=== PATIENT | female | born 2000 | race Caucasian/White ===

== ENCOUNTER 2020-04-07 05:12 | Observation (INO) | payer OTHER ==
[2020-04-07] MEDS ORDERED: Zofran 4 MG/2 ML VIAL IV ONE (05:42)
[2020-04-07] MEDS ORDERED: Phenergan 25 MG INJ IM ONE (05:42)
[2020-04-07] MEDS ORDERED: PROTONIX 40 MG IV IV ONE ×2 (05:42→05:57)
[2020-04-07] MEDS ORDERED: Sodium Chloride 0.9% 1000 ML 1,000 ML IV STA (05:42)
[2020-04-07] MEDS ORDERED: Zofran 4 MG/2 ML VIAL ONE ×2 (05:45→09:50)
[2020-04-07] MEDS ORDERED: Phenergan 25 MG INJ ONE (05:45)
[2020-04-07] MEDS ORDERED: Sodium Chloride 0.9% 1000 ML 1,000 ML ONE (05:45)
[2020-04-07] MEDS ORDERED: MORPHINE SULFATE 4 MG INJ ONE (05:58)
[2020-04-07] MEDS ORDERED: MORPHINE SULFATE 4 MG INJ IV ONE (06:07)
[2020-04-07 06:09] LABS: Absolute Neutrophil Ct (ANC) 13.09 (1.4-6.9); BASOPHIL % 0.2 % (0.0-0.4); Basophil (Absolute #) 0.03 (0-0.4); Eosinophil % 0.8 % (0.00-5.0); Eosinophil (Absolute #) 0.14 (0-0.5); Hematocrit 35.9 % (35-47); Hemoglobin 11.6 gm/dl (12.0-16.0); Lymphocyte (Absolute #) 3.01 (1.0-4.6); Lymphocytes % 17.3 % (24.0-44.0); Mean Cell Volume 76.4 fl (78-100); Mean Corpuscular Hemoglobin 24.7 pg (26-32); Mean Corpuscular Hgb Concent. 32.3 g/dl (32-36); Mean Platelet Volume 10.2 fl (7.5-11.0); Monocyte (Absolute #) 1.16 (0.0-1.3); Monocytes % 6.7 % (0.0-12.0); Platelet Count 442 K/mm3 (150-450); Red Cell Distribution Width 14.1 % (11.5-14.0); White Blood Count 17.4 K/mm3 (4.0-10.5)
--- NOTE | 2020-04-07 06:14 | ERPHSYRPT ---
- History of Present Illness Time Seen by Provider: 04/07/20 06:06 Historian: patient, family Exam Limitations: no limitations Patient Subjective Stated Complaint: pt c/o vomiting since midnight and a couple episodes of diarrhea Triage Nursing Assessment: pt c/o vomiting nonstop since midnight and a couple episodes of diarrhea. Pt states, "My brother was Covid positive on Feb 26". Physician History: 19yo patient female with NVD since last night. sick contact with brother who was covid + 02/26. No fever. Severe abd pain. No CP or SOB. No medical hx. Timing/Duration: yesterday Activities at Onset: none Quality: cramping, stabbing Abdominal Pain Onset Location: generalized abdomen Pain Radiation: no radiation Severity of Pain-Max: moderate Severity of Pain-Current: severe Modifying Factors: Improves With: nothing Associated Symptoms: diarrhea, vomiting, weakness Previous symptoms: no prior history Allergies/Adverse Reactions: No Known Drug Allergies Allergy (Unverified 04/07/20 05:39) Home Medications: Escitalopram Oxalate [Lexapro] 20 mg PO HS 04/07/20 [History] Trazodone HCl 50 mg [Desyrel 50 mg] 50 mg PO HS 04/07/20 [History] Hx Tetanus, Diphtheria Vaccination/Date Given: Yes Hx Influenza Vaccination/Date Given: No Hx Pneumococcal Vaccination/Date Given: No Immunizations Up to Date: Yes Travel Risk - International Travel Have you traveled outside of the country in past 3 weeks: No - Coronavirus Screening Symptoms: Vomiting/Diarrhea, Headaches/Body Aches/Fatigue Close contact with a COVID-19 positive Pt in past 14-21 Days: No - Review of Systems Constitutional: Malaise, Weakness, No Fever, No Chills Eyes: No Symptoms Ears, Nose, & Throat: No Symptoms Respiratory: No Cough, No Dyspnea Cardiac: No Chest Pain, No Edema, No Syncope Abdominal/Gastrointestinal: Abdominal Pain, Nausea, Vomiting, Diarrhea Genitourinary Symptoms: No Dysuria Musculoskeletal: No Back Pain, No Neck Pain Skin: No Rash Neurological: No Dizziness, No Focal Weakness, No Sensory Changes Psychological: No Symptoms Endocrine: No Symptoms All Other Systems: Reviewed and Negative - Past Medical History Pertinent Past Medical History: Yes Neurological History: No Pertinent History ENT History: No Pertinent History Cardiac History: No Pertinent History Respiratory History: No Pertinent History Endocrine Medical History: No Pertinent History Musculoskeletal History: No Pertinent History GI Medical History: Other History: No Pertinent History Psycho-Social History: Anxiety, Depression Female Reproductive Disorders: No Pertinent History Other Medical History: viral infection of bowels - Past Surgical History Past Surgical History: No - Social History Smoking Status: Current every day smoker How long have you smoked: 1 yr Exposure to second hand smoke: Yes Drug Use: marijuana Patient Lives Alone: No - Female History Hx Last Menstrual Period: unknown Hx Now: No - Nursing Vital Signs Nursing Vital Signs: Initial Vital Signs Temperature 98.0 F 04/07/20 05:18 Pulse Rate 63 04/07/20 05:18 Respiratory Rate 16 04/07/20 05:18 Blood Pressure 136/90 04/07/20 05:18 O2 Sat by Pulse Oximetry 100 04/07/20 05:18 Pain Scale Pain Intensity 3 - Physical Exam General Appearance: moderate distress, alert, anxiety Eye Exam: PERRL/EOMI, eyes nml inspection Ears, Nose, Throat Exam: normal ENT inspection, pharynx normal, moist mucous membranes Neck Exam: normal inspection, non-tender, supple, full range of motion Respiratory Exam: normal breath sounds, lungs clear, No respiratory distress Cardiovascular Exam: regular rate/rhythm, normal heart sounds Gastrointestinal/Abdomen Exam: soft, tenderness, mass Pelvic Exam: deferred Rectal Exam: deferred Back Exam: normal inspection, normal range of motion, No CVA tenderness, No vertebral tenderness Extremity Exam: normal inspection, normal range of motion, pelvis stable Neurologic Exam: alert, oriented x 3, cooperative, normal mood/affect, nml cerebellar function, sensation nml, No motor deficits Skin Exam: normal color, warm, dry SpO2 Interpretation: normal SpO2: 100 - Course Nursing assessment & vital signs reviewed: Yes - CT Exams Abdomen/Pelvis CT Interpretation: Discussed w/radiologist, appendicitis Ordered Tests: Active Orders 24 hr Category Date Time Status Bedrest with BRP/BSC TOLERATED Activity 04/07/20 07:57 Ordered Code Status Order ROUTINE Care 04/07/20 07:56 Ordered IV Insertion STAT Care 04/07/20 05:42 Active Intake and Output 09,13,18,21 Care 04/07/20 07:[address] in Observation ROUTINE Care 04/07/20 07:55 Ordered Telemetry PROTOCOL Care 04/07/20 07:57 Ordered Vital Signs Q4H Care 04/07/20 07:55 Ordered NPO Diet 04/07/20 07:57 Ordered ABDOMEN AND PELVIS W/0 CONTRAS [CT] Stat Exams 04/07/20 05:43 Taken AMYLASE Stat Lab 04/07/20 06:00 Completed CBC W DIFF Stat Lab 04/07/20 06:00 Completed CMP Stat Lab 04/07/20 06:00 Completed HCG QUALITATIVE,SERUM Stat Lab 04/07/20 06:10 Completed HCG,QUALITATIVE URINE Stat Lab 04/07/20 06:00 Ordered INFLUENZA A+B CHELA Stat Lab 04/07/20 06:05 Completed LIPASE Stat Lab 04/07/20 06:00 Completed Lactic Acid Stat Lab 04/07/20 06:00 Completed [place] Screen Stat Lab 04/07/20 06:00 Completed PROTIME WITH INR Stat Lab 04/07/20 07:55 Ordered PTT Stat Lab 04/07/20 07:55 Ordered UA W/RFX UR CULTURE Stat Lab 04/07/20 05:43 Ordered EKG STAT RT 04/07/20 07:55 Ordered Pulse Oximetry ROUTINE RT 04/07/20 07:58 Ordered Medication Summary Generic Name Dose Route Start Last Admin Trade Name Freq PRN Reason Stop Dose Admin Piperacillin Sod/Tazobactam 100 mls @ 200 mls/hr 04/07/20 07:37 04/07/20 07:54 Sod 3.375 gm/ Sodium Chloride IV 04/07/20 08:06 200 mls/hr STAT ONE Administration Sodium Chloride 1,000 mls @ 100 mls/hr 04/07/20 08:00 Sodium Chloride 0.9% 1000 Ml IV 05/07/20 07:59 .Q10H DAJUAN Morphine Sulfate 4 mg 04/07/20 07:59 Morphine Sulfate 4 Mg Inj IV 04/12/20 07:58 Q4H PRN PRN PAIN Ondansetron HCl 2 mg 04/07/20 07:59 Zofran 4 Mg/2 Ml Vial IV 05/07/20 07:58 Q6H PRN PRN NAUSEA/VOMITING Discontinued Medications Generic Name Dose Route Start Last Admin Trade Name Freq PRN Reason Stop Dose Admin Sodium Chloride Confirm 04/07/20 05:45 Sodium Chloride 0.9% 1000 Ml Administered 04/07/20 05:46 Dose 1,000 mls @ ud .ROUTE .STK-MED ONE Sodium Chloride 1,000 mls @ 999 mls/hr 04/07/20 05:42 04/07/20 07:30 Sodium Chloride 0.9% 1000 Ml IV 04/07/20 06:42 Infused .Q1H1M STA Infusion Sodium Chloride Confirm 04/07/20 07:43 Sodium Chloride 0.9% 100 Ml Ivpb Administered 04/07/20 07:44 Dose 100 mls @ ud IV .STK-MED ONE Morphine Sulfate Confirm 04/07/20 05:58 Morphine Sulfate 4 Mg Inj Administered 04/07/20 05:59 Dose 4 mg .ROUTE .STK-MED ONE Morphine Sulfate 4 mg 04/07/20 06:07 04/07/20 06:09 Morphine Sulfate 4 Mg Inj IV 04/07/20 06:08 4 mg STAT ONE Administration Ondansetron HCl Confirm 04/07/20 05:45 Zofran 4 Mg/2 Ml Vial Administered 04/07/20 05:46 Dose 4 mg .ROUTE .STK-MED ONE Ondansetron HCl 4 mg 04/07/20 05:42 04/07/20 05:49 Zofran 4 Mg/2 Ml Vial IV 04/07/20 05:43 4 mg STAT ONE Administration Pantoprazole Sodium 40 mg 04/07/20 05:42 04/07/20 06:01 Protonix 40 Mg Iv IV 04/07/20 05:43 40 mg STAT ONE Administration Pantoprazole Sodium Confirm 04/07/20 05:57 Protonix 40 Mg Iv Administered 04/07/20 05:58 Dose 40 mg IV .STK-MED ONE Piperacillin Sod/Tazobactam Sod Confirm 04/07/20 07:43 Zosyn 3.375 Gm Vial Administered 04/07/20 07:44 Dose 3.375 gm IV .STK-MED ONE Promethazine HCl Confirm 04/07/20 05:45 Phenergan 25 Mg Inj Administered 04/07/20 05:46 Dose 25 mg .ROUTE .STK-MED ONE Promethazine HCl 12.5 mg 04/07/20 05:42 04/07/20 05:50 Phenergan 25 Mg Inj IM 01/22/21 05:43 12.5 mg STAT ONE Administration Lab/Rad Data: Laboratory Result Diagrams 04/07/20 06:00 04/07/20 06:00 Laboratory Results 04/07/20 04/07/20 04/07/20 Range/Units 06:10 06:05 06:00 WBC (4.0-10.5) K/mm3 RBC (4.1-5.4) M/mm3 Hgb (12.0-16.0) gm/dl Hct (35-47) % MCV (78-100) fl MCH (26-32) pg MCHC (32-36) g/dl RDW (11.5-14.0) % Plt Count (150-450) K/mm3 MPV (7.5-11.0) fl Gran % (36.0-66.0) % Eos # (Auto) (0-0.5) Absolute Lymphs (auto) (1.0-4.6) Absolute Monos (auto) (0.0-1.3) Lymphocytes % (24.0-44.0) % Monocytes % (0.0-12.0) % Eosinophils % (0.00-5.0) % Basophils % (0.0-0.4) % Absolute Granulocytes (1.4-6.9) Basophils # (0-0.4) Sodium (137-145) mmol/L Potassium (3.5-5.1) mmol/L Chloride (98-107) mmol/L Carbon Dioxide (22-30) mmol/L Anion Gap (5-15) MEQ/L BUN (7-17) mg/dL Creatinine (0.52-1.04) mg/dL Estimated GFR ML/MIN Glucose (74-106) mg/dL Lactic Acid (0.4-2.0) Calcium (8.4-10.2) mg/dL Total Bilirubin (0.2-1.3) mg/dL AST (14-36) U/L ALT (0-35) U/L Alkaline Phosphatase (38-126) U/L Serum Total Protein (6.3-8.2) g/dL Albumin (3.5-5.0) g/dL Amylase (30-110) U/L Lipase (23-300) U/L Serum , Qual NEGATIVE (Negative) Monoscreen NEGATIVE (Negative) Influenza Type A Ag NEGATIVE (NEGATIVE) Influenza Type B Ag NEGATIVE (NEGATIVE) 04/07/20 04/07/20 04/07/20 Range/Units 06:00 06:00 06:00 WBC 17.4 H (4.0-10.5) K/mm3 RBC 4.70 (4.1-5.4) M/mm3 Hgb 11.6 L (12.0-16.0) gm/dl Hct 35.9 (35-47) % MCV 76.4 L (78-100) fl MCH 24.7 L (26-32) pg MCHC 32.3 (32-36) g/dl RDW 14.1 H (11.5-14.0) % Plt Count 442 (150-450) K/mm3 MPV 10.2 (7.5-11.0) fl Gran % 75.0 H (36.0-66.0) % Eos # (Auto) 0.14 (0-0.5) Absolute Lymphs (auto) 3.01 (1.0-4.6) Absolute Monos (auto) 1.16 (0.0-1.3) Lymphocytes % 17.3 L (24.0-44.0) % Monocytes % 6.7 (0.0-12.0) % Eosinophils % 0.8 (0.00-5.0) % Basophils % 0.2 (0.0-0.4) % Absolute Granulocytes 13.09 H (1.4-6.9) Basophils # 0.03 (0-0.4) Sodium 137 (137-145) mmol/L Potassium 3.4 L (3.5-5.1) mmol/L Chloride 103 (98-107) mmol/L Carbon Dioxide 23 (22-30) mmol/L Anion Gap 14.6 (5-15) MEQ/L BUN 13 (7-17) mg/dL Creatinine 0.59 (0.52-1.04) mg/dL Estimated GFR > 60.0 ML/MIN Glucose 114 H (74-106) mg/dL Lactic Acid 2.9 H (0.4-2.0) Calcium 10.9 H (8.4-10.2) mg/dL Total Bilirubin 0.50 (0.2-1.3) mg/dL AST 21 (14-36) U/L ALT 12 (0-35) U/L Alkaline Phosphatase 107 (38-126) U/L Serum Total Protein 8.1 (6.3-8.2) g/dL Albumin 4.6 (3.5-5.0) g/dL Amylase 69 (30-110) U/L Lipase 61 (23-300) U/L Serum , Qual (Negative) Monoscreen (Negative) Influenza Type A Ag (NEGATIVE) Influenza Type B Ag (NEGATIVE) - Progress Progress: improved Progress Note: 04/07/20 06:16 Care transferred rohan from Dr. Baca at shift change 0600. 04/07/20 07:43 CT scan shows acute appendicitis. This along with her symptoms and leukocytosis of 17 was probable acute abdomen. Discussed with general surgery. Will take her to the OR in the afternoon. Discussed with : Richie Will see patient in: hospital (observation) Counseled pt/family regarding: lab results, diagnosis, rad results - Departure Departure Disposition: Observation Clinical Impression: Acute appendicitis Condition: Stable Critical Care Time: No Referrals: WAYNE YOUNG [Primary Care Provider] -
[2020-04-07 06:23] LABS: ALBUMIN 4.6 g/dL (3.5-5.0); ALKALINE PHOSPHATASE 107 U/L (38-126); AMYLASE 69 U/L (30-110); ANION GAP 14.6 MEQ/L (5-15); BLOOD UREA NITROGEN 13 mg/dL (7-17); CHLORIDE 103 mmol/L (98-107); Calcium 10.9 mg/dL (8.4-10.2); Carbon Dioxide 23 mmol/L (22-30); Creatinine 1 0.59 mg/dL (0.52-1.04); EST GLOMERULAR FILTRATION RATE > 60.0 ML/MIN; Glucose 114 mg/dL (74-106); LIPASE 61 U/L (23-300); Potassium 3.4 mmol/L (3.5-5.1); SGOT/AST 21 U/L (14-36); SGPT/ALT 12 U/L (0-35); SODIUM 137 mmol/L (137-145); Total Protein 8.1 g/dL (6.3-8.2)
[2020-04-07 06:25] LABS: INFLUENZA A NEGATIVE (NEGATIVE); INFLUENZA B NEGATIVE (NEGATIVE)
[2020-04-07] MEDS ORDERED: Zosyn 3.375 GM Vial 3.375 GM in Sodium Chloride 100ML MINI-BAG PLUS 100 ML IV ONE (07:37)
[2020-04-07] MEDS ORDERED: Sodium Chloride 0.9% 100 ML IVPB 100 ML IV ONE (07:43)
[2020-04-07] MEDS ORDERED: Zosyn 3.375 GM Vial IV ONE (07:43)
[2020-04-07] MEDS ORDERED: MORPHINE SULFATE 4 MG INJ IV PRN (07:59)
[2020-04-07] MEDS ORDERED: Zofran 4 MG/2 ML VIAL IV PRN (07:59)
[2020-04-07] MEDS ORDERED: Sodium Chloride 0.9% 1000 ML 1,000 ML IV SCH (08:00)
[2020-04-07 08:10] LABS: INR 1.22 (0.8-3.0); PROTIME 13.8 SECONDS (9.95-12.35)
[2020-04-07 08:13] LABS: PTT 23.5 SECONDS (25.3-37.0)
[2020-04-07] MEDS ORDERED: Sensorcaine 0.25% 10 ML ONE (08:29)
--- NOTE | 2020-04-07 08:57 | XRAY ---
Indication: Abdomen pain and vomiting. Multiple contiguous axial images obtained through the abdomen and pelvis without contrast as ordered. Comparison: None Lung bases are clear. Heart is not enlarged. Noncontrasted stomach and bowel loops appear nonobstructed. Retrocecal appendix is prominent up to 15 mm in diameter with minimal periappendiceal stranding favoring appendicitis. Concretions/appendicolith seen at base of appendix. Tiny cul-de-sac fluid either reactive to appendicitis versus ruptured/leaking cyst. No walled off fluid collection or free air. Remaining liver, gallbladder, pancreas, spleen, adrenal glands, kidneys, ureters, bladder, uterus, and aorta appear unremarkable for noncontrast exam. Osseous structures intact. Impression: CT features as detailed favoring acute appendicitis. Tiny cul-de-sac fluid.
[2020-04-07] MEDS ORDERED: Lactated Ringers 1,000 ML IV SCH (09:00)
[2020-04-07] MEDS ORDERED: MEFOXIN 2 GM PREMIX** 2 GM/50 ML ML IV SCH (09:00)
[2020-04-07] MEDS ORDERED: Versed 2 MG/2 ML Injection ONE (09:21)
[2020-04-07] MEDS ORDERED: DIPRIVAN 200 MG/20 ML IV ONE (09:21)
[2020-04-07] MEDS ORDERED: Zemuron 100 MG/10 ML ONE (09:21)
[2020-04-07] MEDS ORDERED: Quelicin Fliptop 200 MG/10 ML ONE (09:21)
[2020-04-07] MEDS ORDERED: SUBLIMAZE 250 MCG/5 ML ONE (09:22)
[2020-04-07] MEDS ORDERED: Decadron 4 MG INJ ONE (09:33)
[2020-04-07] MEDS ORDERED: TORAdol 30 mg Injection ONE (09:50)
--- NOTE | 2020-04-07 10:41 | HP ---
HISTORY OF PRESENT ILLNESS: A 19 year old had sudden onset of abdominal radiating to the right lower quadrant since last night and had some vomiting. She had COVID exposure back in February. PAST MEDICAL HISTORY: She denies any chronic illness although she has some anxiety. PAST SURGICAL HISTORY: She denied any prior surgery. MEDICATIONS: She had been on Lexapro and Desyrel. ALLERGIES: NKDA. FAMILY HISTORY: History of COVID in the family. She denied any chronic medical problems in the family. SOCIAL HISTORY: She is a smoker, does use some marijuana. She denies alcohol abuse. REVIEW OF SYSTEMS: Fourteen systems reviewed pertinent for as noted above. No chest pain or palpitations. Pertinent for abdominal cramping. LAB DATA AND TESTS: White count 17,400, hemoglobin 11.5, PLT count 442,000. test was negative. Liver function test unremarkable. INR 1.22. Alfalfa screen was negative. Abnormal CT abdomen obtained with 15 mm strand favoring acute appendicitis. PHYSICAL EXAMINATION: GENERAL: Slightly uncomfortable in no acute distress. HEENT: Sclerae nonicteric. Moist oral mucous membranes. NECK: No JVD. CHEST: Equal excursion, nonlabored breathing. CVS: Regular rhythm and pulse. ABDOMEN: Soft, tender down in the right lower quadrant. EXTREMITIES: No significant edema. NEURO: Alert, oriented, moving extremities symmetrically. PSYCH: Appropriate mood and affect. SKIN: Dry and intact. IMPRESSION: Acute lower abdominal pain. CT scan suspicious for acute appendicitis. Other differential could include ruptured ovarian, mesenteric adenitis, viral syndrome or other etiology. Given the CT findings and persistent symptoms, I feel she needs diagnostic laparoscopy, laparoscopic appendectomy possible open. General risk of bleeding or infection, risk of trocar injury or hernia, risk of bowel, bladder or blood vessel injury, risk of subsequent intra-abdominal abscess or fistula formation possibly requiring percutaneous or open drainage even at a later date, general risk of anesthesia, deep venous thrombosis, pulmonary embolism, pneumonia, perioperative risk of aches, pain, bloating, ileus or obstruction, risk of ongoing infection. She also understands the possible need for open procedure as well as possibility there could be some other etiology. She might have a normal appendix but would likely remove incidentally and look for other etiology that might need taken care of surgically. She understands and agrees to the planned procedure, will proceed with diagnostic laparoscopy, laparoscopic appendectomy possible open when OR time available.
[2020-04-07] MEDS ORDERED: SUBLIMAZE 100 MCG/2 ML ONE (10:44)
--- NOTE | 2020-04-07 11:08 | OP ---
SURGERY DATE/TIME: 04/07/2020921 PREOPERATIVE DIAGNOSIS: Acute right lower quadrant pain, abnormal appendix suspicious for acute appendicitis on CT scan. POSTOPERATIVE DIAGNOSIS: Acute suppurative appendicitis. PROCEDURE: Laparoscopic appendectomy. SURGEON: Dr. Conor Hanks. ANESTHESIA: General. ESTIMATED BLOOD LOSS: Minimal. INDICATIONS: As noted above. Risks and benefits explained in detail but not limited to, consent obtained. DESCRIPTION OF PROCEDURE AND FINDINGS: The patient was taken to the operating room. General anesthesia was induced. Abdomen prepped and draped in usual sterile fashion. After official time out and no disagreement with planned procedure, a transverse incision made above where she had scar from what may have been a previous piercing. Fascia grasped and pulled upwards. Veress needle inserted and tested with saline. Pneumoperitoneum accomplished insufflating from opening pressure of 0 to 15. A 5 mm bladeless port and camera were inserted without difficulty followed by a 12 mm right mid abdomen port and a 5 mm lower midline port. On careful inspection liver and gallbladder unremarkable, superficial bowel anatomy unremarkable. She did have a little bit enlarged lymph nodes on the mesentery in the colic area. She had small cysts on her ovaries down in the pelvis but no evidence of any blood. Appendix itself was quite distended, had some suppuration on it. It was felt that she definitely warranted appendectomy. The lateral peritoneal reflection was released with pinpoint cautery allowing the appendix and cecum to be mobilized upwards. The appendix was then carefully stapled off of the cecum. Sequential reloads fired across the mesoappendix, pulled up and out. It had a little bit of suppuration on it. It was pulled up and out the 12 mm port and passed off. The port is replaced. Copious amount of irrigation accomplished right lower quadrant and pelvis irrigating clear. Staple line was intact in mesoappendix and cecum. No signs of any active bleeding or leakage. It was felt there was no benefit from drain placement. Pneumoperitoneum decompressed after first closing the 12 mm fascial defect with puncture closure device with #1 Vicryl. 0.25% Marcaine local injected along the skin incision fascial defects at the beginning of the procedure. Pneumoperitoneum decompressed. The wound is irrigated out. Skin incision closed with 4-0 Vicryl. Steri-Strips and sterile dressing applied. The patient tolerated the procedure well. There were no immediate complications. Findings discussed with the family over the phone.
[2020-04-07] MEDS: D5W/0.45NS W/ 20mEq KCl 1000 ML 1,000 ML IV SCH ×2 (11:42→21:59)
[2020-04-07] MEDS: Zosyn 3.375 GM Vial 3.375 GM in Sodium Chloride 100ML MINI-BAG PLUS 100 ML IV SCH ×3 (12:02→23:50)
[2020-04-07 17:16] LABS: Appearance CLEAR (CLEAR); Bilirubin NEGATIVE (NEGATIVE); Blood NEGATIVE Ery/ul (0-5); Epithelial Cells RARE /HPF (FEW); Glucose NEGATIVE (NEGATIVE); Ketones TRACE (NEGATIVE); Leukocyte Esterase NEGATIVE (NEGATIVE); Mucus SLIGHT /HPF (NEGATIVE); Nitrite NEGATIVE (NEGATIVE); Protein,Urine Dip NEGATIVE (Negative); Specific Gravity 1.017 (1.005-1.025); Urobilinogen NEGATIVE mg/dL (0-1)
[2020-04-07 17:19] LABS: Bacteria NONE SEEN /HPF (NEGATIVE)
[2020-04-07] MEDS: DESYREL 50 MG PO SCH (21:55)
[2020-04-07] MEDS: Lexapro 10 MG PO SCH (21:55)
[2020-04-07] MEDS: Nicoderm CQ 21 MG TOP SCH (22:13)
[2020-04-07] MEDS: NORCO 5/325 MG PO PRN (23:11)
[2020-04-08] MEDS: Zosyn 3.375 GM Vial 3.375 GM in Sodium Chloride 100ML MINI-BAG PLUS 100 ML IV SCH ×3 (06:22→17:59)
[2020-04-08 06:25] LABS: Mean Cell Volume 79.6 fl (78-100); Mean Corpuscular Hemoglobin 24.9 pg (26-32); Mean Corpuscular Hgb Concent. 31.3 g/dl (32-36); Mean Platelet Volume 10.3 fl (7.5-11.0); Platelet Count 341 K/mm3 (150-450); Red Blood Count 4.02 M/mm3 (4.1-5.4); Red Cell Distribution Width 14.6 % (11.5-14.0)
[2020-04-08] MEDS: NORCO 5/325 MG PO PRN ×3 (06:54→17:11)
[2020-04-08] MEDS: D5W/0.45NS W/ 20mEq KCl 1000 ML 1,000 ML IV SCH (14:44)
[2020-04-08] MEDS: DESYREL 50 MG PO SCH (20:08)
[2020-04-08] MEDS: Lexapro 10 MG PO SCH (20:08)
[2020-04-08] MEDS: MORPHINE SULFATE 4 MG INJ IV PRN (20:09)
[2020-04-08] MEDS: Nicoderm CQ 21 MG TOP SCH (21:42)
[2020-04-09] MEDS: Zosyn 3.375 GM Vial 3.375 GM in Sodium Chloride 100ML MINI-BAG PLUS 100 ML IV SCH ×2 (00:48→06:10)
[2020-04-09] MEDS: D5W/0.45NS W/ 20mEq KCl 1000 ML 1,000 ML IV SCH (03:00)
[2020-04-09 05:54] LABS: Hematocrit 32.1 % (35-47); Hemoglobin 9.8 gm/dl (12.0-16.0); Mean Cell Volume 81.1 fl (78-100); Mean Corpuscular Hemoglobin 24.7 pg (26-32); Mean Corpuscular Hgb Concent. 30.5 g/dl (32-36); Mean Platelet Volume 10.4 fl (7.5-11.0); Platelet Count 328 K/mm3 (150-450); Red Blood Count 3.96 M/mm3 (4.1-5.4); White Blood Count 7.8 K/mm3 (4.0-10.5)
[2020-04-09 08:06] VITALS: BP 116/73; PULSE 57; O2SAT 99
[2020-04-09] MEDS: MORPHINE SULFATE 4 MG INJ IV PRN (08:35)
== END 2020-04-09 11:40 | disposition home or self-care (01) ==
LOC: ED 05:12 → MED SURG 08:12
PROVIDERS: ADMIT Surgery; ATTEND Surgery
DX: K35.80 Unspecified acute appendicitis (principal); R11.2 Nausea with vomiting, unspecified; R19.7 Diarrhea, unspecified; R10.84 Generalized abdominal pain; R53.1 Weakness; Z79.899 Other long term (current) drug therapy; Z20.822 Contact with and (suspected) exposure to COVID-19
CPT/HCPCS: 0097U; 36000; 36415; 44970; 74176; 80053; 81001; 81025; 82150; 83605; 83690; 84703; 85025; 85027; 85610; 85730; 86308; 87400; 93005; 93268; 94760; 96360; 96365; 96372; 96374; 96375; 99285; G0378; U0003; 99140; J0330; J1100; J1885; J2250; J2270; J2405; J2550; J2704; J3010; A9270-GY

== ENCOUNTER 2021-04-12 16:00 | Emergency (ER) | payer OTHER ==
[2021-04-12] MEDS ORDERED: TYLENOL 325 MG PO ONE (18:02)
[2021-04-12] MEDS ORDERED: Sodium Chloride 0.9% 1000 ML 1,000 ML ONE (18:02)
[2021-04-12] MEDS ORDERED: Sodium Chloride 0.9% 1000 ML 1,000 ML IV STA (18:02)
[2021-04-12] MEDS ORDERED: BENADRYL 50 MG/ML IV ONE (18:02)
[2021-04-12] MEDS ORDERED: Inapsine 5 MG/2 ML IV ONE ×2 (18:02→21:45)
[2021-04-12] MEDS ORDERED: Zofran 4 MG/2 ML VIAL ONE ×2 (18:02→20:09)
[2021-04-12] MEDS ORDERED: Inapsine 5 MG/2 ML ONE ×2 (18:07→21:48)
[2021-04-12] MEDS ORDERED: BENADRYL 50 MG/ML ONE (18:08)
[2021-04-12] MEDS ORDERED: TYLENOL 325 MG ONE (18:20)
[2021-04-12 18:37] LABS: Absolute Neutrophil Ct (ANC) 8.18 (1.4-6.9); Basophil (Absolute #) 0.03 (0-0.4); Eosinophil % 0.1 % (0.00-5.0); Eosinophil (Absolute #) 0.01 (0-0.5); Hematocrit 39.9 % (35-47); Hemoglobin 13.2 gm/dl (12.0-16.0); Lymphocyte (Absolute #) 1.52 (1.0-4.6); Lymphocytes % 14.8 % (24.0-44.0); Mean Cell Volume 76.1 fl (78-100); Mean Corpuscular Hemoglobin 25.2 pg (26-32); Mean Corpuscular Hgb Concent. 33.1 g/dl (32-36); Mean Platelet Volume 9.7 fl (7.5-11.0); Monocyte (Absolute #) 0.52 (0.0-1.3); Monocytes % 5.1 % (0.0-12.0); Neutrophil % 79.7 % (36.0-66.0); Platelet Count 492 K/mm3 (150-450); Red Blood Count 5.24 M/mm3 (4.1-5.4); Red Cell Distribution Width 15.2 % (11.5-14.0); White Blood Count 10.3 K/mm3 (4.0-10.5)
[2021-04-12 18:54] LABS: ALBUMIN 4.9 g/dL (3.5-5.0); ALKALINE PHOSPHATASE 89 U/L (38-126); ANION GAP 18.6 MEQ/L (5-15); BLOOD UREA NITROGEN 18 mg/dL (7-17); CHLORIDE 102 mmol/L (98-107); Carbon Dioxide 21 mmol/L (22-30); Creatinine 1 0.91 mg/dL (0.52-1.04); EST GLOMERULAR FILTRATION RATE > 60.0 ML/MIN; Glucose 83 mg/dL (74-106); Potassium 3.9 mmol/L (3.5-5.1); SGOT/AST 24 U/L (14-36); SGPT/ALT 24 U/L (0-35); SODIUM 138 mmol/L (137-145); Total Protein 8.4 g/dL (6.3-8.2)
--- NOTE | 2021-04-12 19:19 | ERPHSYRPT ---
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 Triage Nursing Assessment: pt arrives pale/w/d, resp easy, non labored, pr is a@ox3. Pt appears to be weak, though awake and alert able to answer questions appropriately Physician History: 20 years old female presented in the ER with 3 days history of nausea vomiting with generalized weakness fatigue and tiredness after she had few shots of alcohol and had marijuana. Patient reports unable to hold anything down and feels dehydrated. She has subjective feeling of fever and chills without cough and shortness of breath. Denies any abdominal pain or diarrhea. Has been tested for COVID-19 outpatient which is negative yesterday. Allergies/Adverse Reactions: No Known Drug Allergies Allergy (Unverified 04/07/20 05:39) Home Medications: Trazodone HCl 50 mg [Desyrel 50 mg] 50 mg PO HS PRN 04/07/20 [History] Aripiprazole 10 mg [Abilify 10 MG] 10 mg PO DAILY 04/12/21 [History] Bupropion HCl [Wellbutrin Xl] 150 mg PO DAILY 04/12/21 [History] Hx Tetanus, Diphtheria Vaccination/Date Given: Yes Hx Influenza Vaccination/Date Given: No Hx Pneumococcal Vaccination/Date Given: No Travel Risk - International Travel Have you traveled outside of the country in past 3 weeks: No - Coronavirus Screening Are you exhibiting any of the following symptoms?: Yes Symptoms: Fever, Vomiting/Diarrhea, Headaches/Body Aches/Fatigue Close contact with a COVID-19 positive Pt in past 14-21 Days: No - Vaccine Status Have you recieved a Covid-19 vaccination: No - Review of Systems Constitutional: No Symptoms Eyes: No Symptoms Ears, Nose, & Throat: No Symptoms Respiratory: No Symptoms Cardiac: No Symptoms Abdominal/Gastrointestinal: Nausea, Vomiting Genitourinary Symptoms: No Symptoms Musculoskeletal: No Symptoms Skin: No Symptoms Neurological: No Symptoms Psychological: No Symptoms Endocrine: No Symptoms Hematologic/Lymphatic: No Symptoms Immunological/Allergic: No Symptoms - Past Medical History Pertinent Past Medical History: Yes Neurological History: No Pertinent History ENT History: No Pertinent History Cardiac History: No Pertinent History Respiratory History: No Pertinent History Endocrine Medical History: No Pertinent History Musculoskeletal History: No Pertinent History GI Medical History: Other History: No Pertinent History Psycho-Social History: Anxiety, Depression Female Reproductive Disorders: No Pertinent History Other Medical History: viral infection of bowels - Past Surgical History Past Surgical History: No - Social History Smoking Status: Current every day smoker How long have you smoked: 1 yr Exposure to second hand smoke: Yes Drug Use: marijuana Patient Lives Alone: No - Female History Hx Last Menstrual Period: 04/11/21 Hx Now: (Unknown) - Nursing Vital Signs Nursing Vital Signs: Initial Vital Signs Temperature 100.4 F 04/12/21 17:33 Pulse Rate 75 04/12/21 17:33 Respiratory Rate 18 04/12/21 17:33 Blood Pressure 130/97 04/12/21 17:33 Pain Scale Pain Intensity 0 - Physical Exam General Appearance: no apparent distress, alert Eye Exam: PERRL/EOMI, eyes nml inspection Ears, Nose, Throat Exam: normal ENT inspection, TMs normal, pharynx normal, moist mucous membranes Neck Exam: normal inspection, non-tender, supple, full range of motion Respiratory Exam: normal breath sounds, lungs clear Cardiovascular Exam: regular rate/rhythm, normal heart sounds Gastrointestinal/Abdomen Exam: soft, normal bowel sounds, No tenderness Back Exam: normal inspection, normal range of motion Extremity Exam: normal inspection, normal range of motion, pelvis stable Neurologic Exam: alert, oriented x 3, cooperative Skin Exam: normal color SpO2 Interpretation: normal SpO2: 96 O2 Delivery: Room Air Ordered Tests: Active Orders 24 hr Category Date Time Status IV Insertion STAT Care 04/12/21 18:02 Active NPO (ED) STAT Care 04/12/21 18:02 Active OBSTR/ACUTE ABDOMEN SERIES Stat Exams 04/12/21 18:02 Taken CBC W DIFF Stat Lab 04/12/21 18:30 Completed CMP Stat Lab 04/12/21 18:30 Completed HCG QUALITATIVE,SERUM Stat Lab 04/12/21 17:40 Completed Lactic Acid Stat Lab 04/12/21 18:34 Completed UA W/RFX UR CULTURE Stat Lab 04/12/21 20:48 Completed Urine Triage Profile Stat Lab 04/12/21 20:48 Completed Medication Summary Discontinued Medications Generic Name Dose Route Start Last Admin Trade Name Jeff PRN Reason Stop Dose Admin Acetaminophen 975 mg 04/12/21 18:02 04/12/21 18:20 Acetaminophen 325 Mg Tablet PO 04/12/21 18:03 975 mg STAT ONE Administration Acetaminophen Confirm 04/12/21 18:20 Acetaminophen 325 Mg Tablet Administered 04/12/21 18:21 Dose 975 mg .ROUTE .STK-MED ONE Diphenhydramine HCl 25 mg 04/12/21 18:02 04/12/21 18:09 Diphenhydramine Hcl 50 Mg/Ml Vial IV 04/12/21 18:03 25 mg STAT ONE Administration Diphenhydramine HCl Confirm 04/12/21 18:08 Diphenhydramine Hcl 50 Mg/Ml Vial Administered 04/12/21 18:09 Dose 50 mg .ROUTE .STK-MED ONE Droperidol 0.625 mg 04/12/21 18:02 04/12/21 18:09 Droperidol 5 Mg/2 Ml Vial IV 04/12/21 18:03 0.625 mg STAT ONE Administration Droperidol Confirm 04/12/21 18:07 Droperidol 5 Mg/2 Ml Vial Administered 04/12/21 18:08 Dose 5 mg .ROUTE .STK-MED ONE Sodium Chloride 1,000 mls @ 999 mls/hr 04/12/21 18:02 04/12/21 19:40 Sodium Chloride 0.9% 1000 Ml IV 04/12/21 19:02 Infused .Q1H1M STA Infusion Sodium Chloride Confirm 04/12/21 18:02 Sodium Chloride 0.9% 1000 Ml Administered 04/12/21 18:03 Dose 1,000 mls @ ud .ROUTE .STK-MED ONE Ondansetron HCl Confirm 04/12/21 18:02 Ondansetron Hcl 4 Mg/2 Ml Vial Administered 04/12/21 18:03 Dose 4 mg .ROUTE .STK-MED ONE Ondansetron HCl 4 mg 04/12/21 20:07 04/12/21 20:14 Ondansetron Hcl 4 Mg/2 Ml Vial IV 04/12/21 20:08 4 mg STAT ONE Administration Ondansetron HCl Confirm 04/12/21 20:09 Ondansetron Hcl 4 Mg/2 Ml Vial Administered 04/12/21 20:10 Dose 4 mg .ROUTE .STK-MED ONE Lab/Rad Data: Laboratory Result Diagrams 04/12/21 18:30 04/12/21 18:30 Laboratory Results 04/12/21 04/12/21 04/12/21 Range/Units 20:48 20:48 18:34 WBC (4.0-10.5) K/mm3 RBC (4.1-5.4) M/mm3 Hgb (12.0-16.0) gm/dl Hct (35-47) % MCV (78-100) fl MCH (26-32) pg MCHC (32-36) g/dl RDW (11.5-14.0) % Plt Count (150-450) K/mm3 MPV (7.5-11.0) fl Gran % (36.0-66.0) % Eos # (Auto) (0-0.5) Absolute Lymphs (auto) (1.0-4.6) Absolute Monos (auto) (0.0-1.3) Lymphocytes % (24.0-44.0) % Monocytes % (0.0-12.0) % Eosinophils % (0.00-5.0) % Basophils % (0.0-0.4) % Absolute Granulocytes (1.4-6.9) Basophils # (0-0.4) Sodium (137-145) mmol/L Potassium (3.5-5.1) mmol/L Chloride (98-107) mmol/L Carbon Dioxide (22-30) mmol/L Anion Gap (5-15) MEQ/L BUN (7-17) mg/dL Creatinine (0.52-1.04) mg/dL Estimated GFR ML/MIN Glucose (74-106) mg/dL Lactic Acid 1.9 (0.4-2.0) Calcium (8.4-10.2) mg/dL Total Bilirubin (0.2-1.3) mg/dL AST (14-36) U/L ALT (0-35) U/L Alkaline Phosphatase (38-126) U/L Serum Total Protein (6.3-8.2) g/dL Albumin (3.5-5.0) g/dL Serum , Qual (Negative) Urine Color YELLOW (YELLOW) Urine Appearance CLOUDY (CLEAR) Urine pH 8.0 (5-6) Ur Specific [place] 1.026 (1.005-1.025) Urine Protein 30 (Negative) Urine Ketones MODERATE (NEGATIVE) Urine Blood TRACE LYSED (0-5) Walter/ul Urine Nitrite NEGATIVE (NEGATIVE) Urine Bilirubin NEGATIVE (NEGATIVE) Urine Urobilinogen 2 (0-1) mg/dL Ur Leukocyte Esterase NEGATIVE (NEGATIVE) Urine WBC (Auto) NONE (0-5) /HPF Urine RBC (Auto) NONE (0-2) /HPF U Epithel Cells (Auto) NONE (FEW) /HPF Urine Bacteria (Auto) NONE (NEGATIVE) /HPF Urine Mucus (Auto) SLIGHT (NEGATIVE) /HPF Urine Culture Reflexed NO (NO) Urine Glucose NEGATIVE (NEGATIVE) mg/dL Urine Opiates Level NEGATIVE (NEGATIVE) Ur Methadone NEGATIVE (NEGATIVE) Urine Barbiturates NEGATIVE (NEGATIVE) Ur Phencyclidine (PCP) NEGATIVE (NEGATIVE) Urine Amphetamine NEGATIVE (NEGATIVE) U Benzodiazepine Level NEGATIVE (NEGATIVE) Urine Cocaine NEGATIVE (NEGATIVE) Urine Marijuana (THC) POSITIVE (NEGATIVE) 04/12/21 04/12/21 04/12/21 Range/Units 18:30 18:30 17:40 WBC 10.3 (4.0-10.5) K/mm3 RBC 5.24 (4.1-5.4) M/mm3 Hgb 13.2 (12.0-16.0) gm/dl Hct 39.9 (35-47) % MCV 76.1 L (78-100) fl MCH 25.2 L (26-32) pg MCHC 33.1 (32-36) g/dl RDW 15.2 H (11.5-14.0) % Plt Count 492 H (150-450) K/mm3 MPV 9.7 (7.5-11.0) fl Gran % 79.7 H (36.0-66.0) % Eos # (Auto) 0.01 (0-0.5) Absolute Lymphs (auto) 1.52 (1.0-4.6) Absolute Monos (auto) 0.52 (0.0-1.3) Lymphocytes % 14.8 L (24.0-44.0) % Monocytes % 5.1 (0.0-12.0) % Eosinophils % 0.1 (0.00-5.0) % Basophils % 0.3 (0.0-0.4) % Absolute Granulocytes 8.18 H (1.4-6.9) Basophils # 0.03 (0-0.4) Sodium 138 (137-145) mmol/L Potassium 3.9 (3.5-5.1) mmol/L Chloride 102 (98-107) mmol/L Carbon Dioxide 21 L (22-30) mmol/L Anion Gap 18.6 H (5-15) MEQ/L BUN 18 H (7-17) mg/dL Creatinine 0.91 (0.52-1.04) mg/dL Estimated GFR > 60.0 ML/MIN Glucose 83 (74-106) mg/dL Lactic Acid (0.4-2.0) Calcium 10.0 (8.4-10.2) mg/dL Total Bilirubin 1.00 (0.2-1.3) mg/dL AST 24 (14-36) U/L ALT 24 (0-35) U/L Alkaline Phosphatase 89 (38-126) U/L Serum Total Protein 8.4 H (6.3-8.2) g/dL Albumin 4.9 (3.5-5.0) g/dL Serum , Qual NEGATIVE (Negative) Urine Color (YELLOW) Urine Appearance (CLEAR) Urine pH (5-6) Ur Specific [place] (1.005-1.025) Urine Protein (Negative) Urine Ketones (NEGATIVE) Urine Blood (0-5) Walter/ul Urine Nitrite (NEGATIVE) Urine Bilirubin (NEGATIVE) Urine Urobilinogen (0-1) mg/dL Ur Leukocyte Esterase (NEGATIVE) Urine WBC (Auto) (0-5) /HPF Urine RBC (Auto) (0-2) /HPF U Epithel Cells (Auto) (FEW) /HPF Urine Bacteria (Auto) (NEGATIVE) /HPF Urine Mucus (Auto) (NEGATIVE) /HPF Urine Culture Reflexed (NO) Urine Glucose (NEGATIVE) mg/dL Urine Opiates Level (NEGATIVE) Ur Methadone (NEGATIVE) Urine Barbiturates (NEGATIVE) Ur Phencyclidine (PCP) (NEGATIVE) Urine Amphetamine (NEGATIVE) U Benzodiazepine Level (NEGATIVE) Urine Cocaine (NEGATIVE) Urine Marijuana (THC) (NEGATIVE) - Progress Progress: improved, re-examined Progress Note: 04/12/21 21:38 She is given symptomatic treatment for nausea vomiting along with fluids, on reevaluation feeling better. Grossly unremarkable work-up except for some element of dehydration. Urine drug screen positive for marijuana. She did smoke marijuana the night she drank alcohol and her symptoms started could be cyclical vomiting syndrome. Acute abdomen series negative reviewed by me. We will give her Zofran to go home and recommended Tylenol take as needed and outpatient follow-up. Discussed signs symptoms of worsening needing return to ER which she seems understanding. She had COVID-19 test done yesterday which was negative. 04/12/21 21:39 Counseled pt/family regarding: lab results, diagnosis, need for follow-up, rad results - Departure Departure Disposition: Home Clinical Impression: Nausea & vomiting Qualifiers: Vomiting type: unspecified Qualified Code(s): R11.2 - Nausea with vomiting, unspecified Condition: Stable Critical Care Time: No Referrals: WAYNE YOUNG [facility] [Primary Care Provider] - Follow up/PCP as directed (1-2 days was evaluated) Instructions: Nausea and Vomiting, Adult (DC) Additional Instructions: Drink plenty of fluids to keep yourself well-hydrated. Take Tylenol/Zofran as needed. Follow-up with primary care for reevaluation. Return to ER for worsening/intractable vomiting or if develop abdominal pain/fever chills etc. Prescriptions: Ondansetron ODT 4 MG [Zofran Odt 4 mg] 1 ea PO QIDPRN PRN #7 tablet PRN Reason: n/v
[2021-04-12] MEDS ORDERED: Zofran 4 MG/2 ML VIAL IV ONE (20:07)
[2021-04-12 21:22] VITALS: BP 144/96; PULSE 63
[2021-04-12 21:24] LABS: Appearance CLOUDY (CLEAR); Bilirubin NEGATIVE (NEGATIVE); Blood TRACE LYSED Ery/ul (0-5); Glucose NEGATIVE (NEGATIVE); Ketones MODERATE (NEGATIVE); Leukocyte Esterase NEGATIVE (NEGATIVE); Mucus SLIGHT /HPF (NEGATIVE); Nitrite NEGATIVE (NEGATIVE); Protein,Urine Dip 30 (Negative); Specific Gravity 1.026 (1.005-1.025); Urobilinogen 2 mg/dL (0-1)
[2021-04-12 21:33] LABS: Amphetamine,Urine NEGATIVE (NEGATIVE); Barbiturate,Urine NEGATIVE (NEGATIVE); Benzodiazepine,Urine NEGATIVE (NEGATIVE); Cocaine,Urine NEGATIVE (NEGATIVE); Methadone,Urine NEGATIVE (NEGATIVE); Opiate,Urine NEGATIVE (NEGATIVE); PCP,Urine NEGATIVE (NEGATIVE); THC,Urine POSITIVE (NEGATIVE)
[2021-04-12 21:41] VITALS: O2SAT 96
--- NOTE | 2021-04-13 08:42 | XRAY ---
Indication: Fever, nausea, vomiting, and weakness. Comparison: None 2 view abdomen nonacute and nonobstructed. Solid organs and osseous structures unremarkable. Single AP chest demonstrates normal heart, lungs, and bony thorax. Impression: Negative abdomen. Normal 1 view chest.
== END 2021-04-12 22:10 | disposition home or self-care (01) ==
LOC: ED 16:00
DX: R11.2 Nausea with vomiting, unspecified (principal); R53.1 Weakness; R53.83 Other fatigue; Z72.0 Tobacco use; Z79.899 Other long term (current) drug therapy
CPT/HCPCS: 36000; 36415; 74022; 80053; 80307; 81001; 81025; 83605; 85025; 96374; 96375; 99284; J1200; J2405; A9270-GY

== ENCOUNTER 2021-04-15 13:06 | Emergency (ER) | payer OTHER ==
[2021-04-15] MEDS ORDERED: Sodium Chloride 0.9% 1000 ML 1,000 ML IV STA ×2 (13:33→14:31)
[2021-04-15] MEDS ORDERED: PROTONIX 40 MG IV IV ONE ×2 (13:33→13:40)
[2021-04-15] MEDS ORDERED: BENADRYL 50 MG/ML IV ONE ×2 (13:33→15:09)
[2021-04-15] MEDS ORDERED: Pepcid 20 MG VIAL IV ONE ×2 (13:33→13:40)
--- NOTE | 2021-04-15 13:33 | ERPHSYRPT ---
- History of Present Illness Time Seen by Provider: 04/15/21 13:29 Source: patient, family, old records Exam Limitations: no limitations Patient Subjective Stated Complaint: Pt states "I have been sick for the past 6 days. I have been to [facility] and now here. I just cannot keep anything down." Triage Nursing Assessment: PT presented alert and oriented X 3, skin pwd Pt ambulates with an upright steady gait, able to speak in clear full sentences pt in no apaprent respiratory distress. Pt resting comfortably on the bed. Physician History: pt had covid over new years and past 6 days has been vomiting and seen at other places with trials of zofran and reglan but not working. reports mild marajuana use. No abd or CP or SOBreath. no edema or swelling of ext. or erythema. fundi benign. no FRASER or neuro findings. no meningismus. Timing/Duration: day(s) Severity: moderate Modifying Factors: Improves With: nothing Associated Symptoms: nausea, vomiting Allergies/Adverse Reactions: Corticosteroids (Glucocorticoids) Allergy (Severe, Verified 04/15/21 13:19) Swelling Home Medications: Trazodone HCl 50 mg [Desyrel 50 mg] 50 mg PO HS PRN 04/07/20 [History] Aripiprazole 10 mg [Abilify 10 MG] 10 mg PO DAILY 04/12/21 [History] Bupropion HCl [Wellbutrin Xl] 150 mg PO DAILY 04/12/21 [History] Metoclopramide HCl 5 mg [Reglan 5 MG] 5 mg PO QID 04/15/21 [History] Hx Tetanus, Diphtheria Vaccination/Date Given: Yes Hx Influenza Vaccination/Date Given: No Hx Pneumococcal Vaccination/Date Given: No Immunizations Up to Date: Yes Travel Risk - International Travel Have you traveled outside of the country in past 3 weeks: No - Coronavirus Screening Are you exhibiting any of the following symptoms?: No Close contact with a COVID-19 positive Pt in past 14-21 Days: No - Vaccine Status Have you recieved a Covid-19 vaccination: No - Review of Systems Constitutional: No Fever, No Chills Eyes: No Symptoms Ears, Nose, & Throat: No Symptoms Respiratory: No Cough, No Dyspnea Cardiac: No Chest Pain, No Edema, No Syncope Abdominal/Gastrointestinal: Nausea, Vomiting, No Abdominal Pain, No Diarrhea Genitourinary Symptoms: No Dysuria Musculoskeletal: No Back Pain, No Neck Pain Skin: No Rash Neurological: No Dizziness, No Focal Weakness, No Sensory Changes Psychological: No Symptoms Endocrine: No Symptoms Hematologic/Lymphatic: No Symptoms Immunological/Allergic: No Symptoms All Other Systems: Reviewed and Negative - Past Medical History Pertinent Past Medical History: Yes Neurological History: No Pertinent History ENT History: No Pertinent History Cardiac History: No Pertinent History Respiratory History: No Pertinent History Endocrine Medical History: No Pertinent History Musculoskeletal History: No Pertinent History GI Medical History: Other History: No Pertinent History Psycho-Social History: Anxiety, Depression Female Reproductive Disorders: No Pertinent History Other Medical History: viral infection of bowels - Past Surgical History Past Surgical History: No - Social History Smoking Status: Current every day smoker How long have you smoked: 1 yr Exposure to second hand smoke: Yes Drug Use: marijuana Patient Lives Alone: No - Female History Hx Last Menstrual Period: 04/13/2020 Hx Now: No - Nursing Vital Signs Nursing Vital Signs: Initial Vital Signs Temperature 98.1 F 04/15/21 13:14 Pulse Rate 80 04/15/21 13:14 Respiratory Rate 22 04/15/21 13:14 Blood Pressure 146/72 04/15/21 13:14 O2 Sat by Pulse Oximetry 100 04/15/21 13:14 Pain Scale Pain Intensity 0 - Physical Exam General Appearance: no apparent distress, alert Eye Exam: PERRL/EOMI, eyes nml inspection Ears, Nose, Throat Exam: normal ENT inspection, TMs normal, pharynx normal, moist mucous membranes Neck Exam: normal inspection, non-tender, supple, full range of motion Respiratory Exam: normal breath sounds, lungs clear, No respiratory distress Cardiovascular Exam: regular rate/rhythm, normal heart sounds, normal peripheral pulses Gastrointestinal/Abdomen Exam: soft, normal bowel sounds, No tenderness, No mass Back Exam: normal inspection, normal range of motion, No CVA tenderness, No vertebral tenderness Extremity Exam: normal inspection, normal range of motion, pelvis stable Neurologic Exam: alert, oriented x 3, cooperative, normal mood/affect, nml cerebellar function, nml station & gait, sensation nml, No motor deficits Skin Exam: normal color, warm, dry, No rash Lymphatic Exam: No adenopathy SpO2 Interpretation: normal SpO2: 100 O2 Delivery: Room Air - Course Nursing assessment & vital signs reviewed: Yes EKG Interpreted by Me: Sinus Rhythm, NORMAL AXIS, NORMAL INTERVALS, NORMAL QRS, Non-specific ST Changes Ordered Tests: Active Orders 24 hr Category Date Time Status EKG-ER Only STAT Care 04/15/21 13:33 Active IV Insertion STAT Care 04/15/21 13:33 Active AMYLASE Stat Lab 04/15/21 13:30 Completed CBC W DIFF Stat Lab 04/15/21 13:30 Completed CMP Stat Lab 04/15/21 13:30 Completed HCG QUALITATIVE,SERUM Stat Lab 04/15/21 13:30 Completed LIPASE Stat Lab 04/15/21 13:30 Completed Lactic Acid Stat Lab 04/15/21 13:33 Completed Lactic Acid Stat Lab 04/15/21 15:49 Received UA W/RFX UR CULTURE Stat Lab 04/15/21 13:37 Completed Medication Summary Discontinued Medications Generic Name Dose Route Start Last Admin Trade Name Freq PRN Reason Stop Dose Admin Diphenhydramine HCl 25 mg 04/15/21 13:33 04/15/21 13:42 Diphenhydramine Hcl 50 Mg/Ml Vial IV 04/15/21 13:34 50 mg STAT ONE Administration Diphenhydramine HCl Confirm 04/15/21 13:40 Diphenhydramine Hcl 50 Mg/Ml Vial Administered 04/15/21 13:41 Dose 50 mg .ROUTE .STK-MED ONE Diphenhydramine HCl 12 mg 04/15/21 15:09 04/15/21 15:24 Diphenhydramine Hcl 50 Mg/Ml Vial IV 04/15/21 15:10 12 mg STAT ONE Administration Diphenhydramine HCl Confirm 04/15/21 15:20 Diphenhydramine Hcl 50 Mg/Ml Vial Administered 04/15/21 15:21 Dose 50 mg .ROUTE .STK-MED ONE Famotidine 20 mg 04/15/21 13:33 04/15/21 13:43 Famotidine 20 Mg/1 Vial IV 04/15/21 13:34 20 mg STAT ONE Administration Famotidine Confirm 04/15/21 13:40 Famotidine 20 Mg/1 Vial Administered 04/15/21 13:41 Dose 20 mg IV .STK-MED ONE Haloperidol Lactate 5 mg 04/15/21 13:36 04/15/21 13:43 Haloperidol Lactate 5 Mg/Ml Vial IM 04/15/21 13:37 5 mg STAT ONE Administration Haloperidol Lactate Confirm 04/15/21 13:40 Haloperidol Lactate 5 Mg/Ml Vial Administered 04/15/21 13:41 Dose 5 mg .ROUTE .STK-MED ONE Sodium Chloride 1,000 mls @ 999 mls/hr 04/15/21 13:33 04/15/21 14:54 Sodium Chloride 0.9% 1000 Ml IV 04/15/21 14:33 Infused .Q1H1M STA Infusion Sodium Chloride Confirm 04/15/21 13:40 Sodium Chloride 0.9% 1000 Ml Administered 04/15/21 13:41 Dose 1,000 mls @ ud .ROUTE .STK-MED ONE Sodium Chloride 1,000 mls @ 999 mls/hr 04/15/21 14:31 04/15/21 16:04 Sodium Chloride 0.9% 1000 Ml IV 04/15/21 15:31 Infused .Q1H1M STA Infusion Sodium Chloride Confirm 04/15/21 14:53 Sodium Chloride 0.9% 1000 Ml Administered 04/15/21 14:54 Dose 1,000 mls @ ud .ROUTE .STK-MED ONE Ceftriaxone Sodium/Dextrose 1 g in 50 mls @ 100 mls/hr 04/15/21 15:02 04/15/21 16:04 Rocephin 1 Gm-D5w 50 Ml Bag IV 04/15/21 15:31 Infused STAT STA Infusion Ceftriaxone Sodium/Dextrose Confirm 04/15/21 15:08 Rocephin 1 Gm-D5w 50 Ml Bag Administered 04/15/21 15:09 Dose 1 g in 50 mls @ ud IV .STK-MED ONE Pantoprazole Sodium 40 mg 04/15/21 13:33 04/15/21 13:43 Pantoprazole 40 Mg Vial IV 04/15/21 13:34 40 mg STAT ONE Administration Pantoprazole Sodium Confirm 04/15/21 13:40 Pantoprazole 40 Mg Vial Administered 04/15/21 13:41 Dose 40 mg IV .STK-MED ONE Prochlorperazine Edisylate 10 mg 04/15/21 15:08 04/15/21 15:26 Prochlorperazine Edisylate 10 Mg/2 Ml Vial IV 04/15/21 15:09 10 mg STAT ONE Administration Prochlorperazine Edisylate Confirm 04/15/21 15:21 Prochlorperazine Edisylate 10 Mg/2 Ml Vial Administered 04/15/21 15:22 Dose 10 mg .ROUTE .STK-MED ONE Lab/Rad Data: Laboratory Result Diagrams 04/15/21 13:30 04/15/21 13:30 Laboratory Results 04/15/21 04/15/21 04/15/21 Range/Units 13:37 13:33 13:30 WBC (4.0-10.5) K/mm3 RBC (4.1-5.4) M/mm3 Hgb (12.0-16.0) gm/dl Hct (35-47) % MCV (78-100) fl MCH (26-32) pg MCHC (32-36) g/dl RDW (11.5-14.0) % Plt Count (150-450) K/mm3 MPV (7.5-11.0) fl Gran % (36.0-66.0) % Eos # (Auto) (0-0.5) Absolute Lymphs (auto) (1.0-4.6) Absolute Monos (auto) (0.0-1.3) Lymphocytes % (24.0-44.0) % Monocytes % (0.0-12.0) % Eosinophils % (0.00-5.0) % Basophils % (0.0-0.4) % Absolute Granulocytes (1.4-6.9) Basophils # (0-0.4) Sodium (137-145) mmol/L Potassium (3.5-5.1) mmol/L Chloride (98-107) mmol/L Carbon Dioxide (22-30) mmol/L Anion Gap (5-15) MEQ/L BUN (7-17) mg/dL Creatinine (0.52-1.04) mg/dL Estimated GFR ML/MIN Glucose (74-106) mg/dL Lactic Acid 1.9 (0.4-2.0) Calcium (8.4-10.2) mg/dL Total Bilirubin (0.2-1.3) mg/dL AST (14-36) U/L ALT (0-35) U/L Alkaline Phosphatase (38-126) U/L Serum Total Protein (6.3-8.2) g/dL Albumin (3.5-5.0) g/dL Amylase (30-110) U/L Lipase (23-300) U/L Serum , Qual NEGATIVE (Negative) Urine Color YELLOW (YELLOW) Urine Appearance SLIGHTLY CLOUDY (CLEAR) Urine pH 5.0 (5-6) Ur Specific Kinde 1.027 (1.005-1.025) Urine Protein 30 (Negative) Urine Ketones SMALL (NEGATIVE) Urine Blood LARGE (0-5) Walter/ul Urine Nitrite NEGATIVE (NEGATIVE) Urine Bilirubin NEGATIVE (NEGATIVE) Urine Urobilinogen 4 (0-1) mg/dL Ur Leukocyte Esterase NEGATIVE (NEGATIVE) Urine WBC (Auto) 6-10 (0-5) /HPF Urine RBC (Auto) >101 (0-2) /HPF U Epithel Cells (Auto) RARE (FEW) /HPF Urine Bacteria (Auto) RARE (NEGATIVE) /HPF Urine Mucus (Auto) MANY (NEGATIVE) /HPF Urine Culture Reflexed NO (NO) Urine Glucose NEGATIVE (NEGATIVE) mg/dL 04/15/21 04/15/21 Range/Units 13:30 13:30 WBC 9.5 (4.0-10.5) K/mm3 RBC 5.34 (4.1-5.4) M/mm3 Hgb 13.5 (12.0-16.0) gm/dl Hct 40.3 (35-47) % MCV 75.5 L (78-100) fl MCH 25.3 L (26-32) pg MCHC 33.5 (32-36) g/dl RDW 14.9 H (11.5-14.0) % Plt Count 560 H (150-450) K/mm3 MPV 9.8 (7.5-11.0) fl Gran % 71.8 H (36.0-66.0) % Eos # (Auto) 0.11 (0-0.5) Absolute Lymphs (auto) 1.79 (1.0-4.6) Absolute Monos (auto) 0.75 (0.0-1.3) Lymphocytes % 18.9 L (24.0-44.0) % Monocytes % 7.9 (0.0-12.0) % Eosinophils % 1.2 (0.00-5.0) % Basophils % 0.2 (0.0-0.4) % Absolute Granulocytes 6.81 (1.4-6.9) Basophils # 0.02 (0-0.4) Sodium 138 (137-145) mmol/L Potassium 4.4 (3.5-5.1) mmol/L Chloride 101 (98-107) mmol/L Carbon Dioxide 24 (22-30) mmol/L Anion Gap 17.3 H (5-15) MEQ/L BUN 13 (7-17) mg/dL Creatinine 0.92 (0.52-1.04) mg/dL Estimated GFR > 60.0 ML/MIN Glucose 95 (74-106) mg/dL Lactic Acid (0.4-2.0) Calcium 10.2 (8.4-10.2) mg/dL Total Bilirubin 0.80 (0.2-1.3) mg/dL AST 17 (14-36) U/L ALT 18 (0-35) U/L Alkaline Phosphatase 85 (38-126) U/L Serum Total Protein 7.9 (6.3-8.2) g/dL Albumin 4.6 (3.5-5.0) g/dL Amylase 57 (30-110) U/L Lipase 55 (23-300) U/L Serum , Qual (Negative) Urine Color (YELLOW) Urine Appearance (CLEAR) Urine pH (5-6) Ur Specific Kinde (1.005-1.025) Urine Protein (Negative) Urine Ketones (NEGATIVE) Urine Blood (0-5) Walter/ul Urine Nitrite (NEGATIVE) Urine Bilirubin (NEGATIVE) Urine Urobilinogen (0-1) mg/dL Ur Leukocyte Esterase (NEGATIVE) Urine WBC (Auto) (0-5) /HPF Urine RBC (Auto) (0-2) /HPF U Epithel Cells (Auto) (FEW) /HPF Urine Bacteria (Auto) (NEGATIVE) /HPF Urine Mucus (Auto) (NEGATIVE) /HPF Urine Culture Reflexed (NO) Urine Glucose (NEGATIVE) mg/dL - Progress Progress: improved, re-examined Progress Note: 04/15/21 14:29 pt feels that abdominal symptoms are improving now. 04/15/21 16:27 pt feels better now. discussed with pt that we have not determined a cause for her vomiting and that further pathology could still be developing including serious conditions - discussed further w/u in ER versus outpt f/u with gastro to further direct therapy and she prefers that rather than further w/u in ER or hosp at this time and would like a trial of new antiemetics and has the capacity to make this choice. Counseled pt/family regarding: lab results, diagnosis, need for follow-up - Departure Departure Disposition: Home Clinical Impression: Emesis, UTI (urinary tract infection) Condition: Good Critical Care Time: No Referrals: WAYNE YOUNG NP [Primary Care Provider] - Follow up/PCP as directed Instructions: Urinary Tract Infection, Adult (DC), Nausea and Vomiting, Adult (DC) Additional Instructions: follow-up with gastroenterology and your Dr. for further workup since we have not determined the cause yet, although ulcers could be a possibility or a long effect from covid on GI motility, and we are treating for possible urinary tract infection as well. have urine retested with your Dr. to confirm resolution. return meantime if not improving, vomiting, abdominal pain or other concerns. take an over the counter benadryl 25 mg with the compazine for nausea. Prescriptions: Prochlorperazine Maleate 10 mg [Compazine 10 mg] 10 mg PO Q8H PRN PRN #14 tablet PRN Reason: Nausea Cephalexin Mh 500 mg [Keflex 500 mg] 500 mg PO TID 7 Days #21 cap
[2021-04-15] MEDS ORDERED: Haldol 5 MG IM ONE (13:36)
[2021-04-15] MEDS ORDERED: BENADRYL 50 MG/ML ONE ×2 (13:40→15:20)
[2021-04-15] MEDS ORDERED: Haldol 5 MG ONE (13:40)
[2021-04-15] MEDS ORDERED: Sodium Chloride 0.9% 1000 ML 1,000 ML ONE ×2 (13:40→14:53)
[2021-04-15 13:48] LABS: Absolute Neutrophil Ct (ANC) 6.81 (1.4-6.9); Basophil (Absolute #) 0.02 (0-0.4); Eosinophil % 1.2 % (0.00-5.0); Eosinophil (Absolute #) 0.11 (0-0.5); Hematocrit 40.3 % (35-47); Hemoglobin 13.5 gm/dl (12.0-16.0); Lymphocyte (Absolute #) 1.79 (1.0-4.6); Lymphocytes % 18.9 % (24.0-44.0); Mean Cell Volume 75.5 fl (78-100); Mean Corpuscular Hemoglobin 25.3 pg (26-32); Mean Corpuscular Hgb Concent. 33.5 g/dl (32-36); Mean Platelet Volume 9.8 fl (7.5-11.0); Monocyte (Absolute #) 0.75 (0.0-1.3); Monocytes % 7.9 % (0.0-12.0); Neutrophil % 71.8 % (36.0-66.0); Platelet Count 560 K/mm3 (150-450); Red Blood Count 5.34 M/mm3 (4.1-5.4); Red Cell Distribution Width 14.9 % (11.5-14.0); White Blood Count 9.5 K/mm3 (4.0-10.5)
[2021-04-15 13:55] LABS: Appearance SLIGHTLY CLOUDY (CLEAR); Bacteria RARE /HPF (NEGATIVE); Bilirubin NEGATIVE (NEGATIVE); Blood LARGE Ery/ul (0-5); Epithelial Cells RARE /HPF (FEW); Glucose NEGATIVE (NEGATIVE); Ketones SMALL (NEGATIVE); Leukocyte Esterase NEGATIVE (NEGATIVE); Mucus MANY /HPF (NEGATIVE); Nitrite NEGATIVE (NEGATIVE); Protein,Urine Dip 30 (Negative); Specific Gravity 1.027 (1.005-1.025); Urobilinogen 4 mg/dL (0-1)
[2021-04-15 13:56] LABS: RBC >101 /HPF (0-2)
[2021-04-15 13:57] LABS: ALBUMIN 4.6 g/dL (3.5-5.0); ALKALINE PHOSPHATASE 85 U/L (38-126); AMYLASE 57 U/L (30-110); ANION GAP 17.3 MEQ/L (5-15); BLOOD UREA NITROGEN 13 mg/dL (7-17); CHLORIDE 101 mmol/L (98-107); Calcium 10.2 mg/dL (8.4-10.2); Carbon Dioxide 24 mmol/L (22-30); Creatinine 1 0.92 mg/dL (0.52-1.04); EST GLOMERULAR FILTRATION RATE > 60.0 ML/MIN; Glucose 95 mg/dL (74-106); LIPASE 55 U/L (23-300); Potassium 4.4 mmol/L (3.5-5.1); SGOT/AST 17 U/L (14-36); SGPT/ALT 18 U/L (0-35); SODIUM 138 mmol/L (137-145); Total Protein 7.9 g/dL (6.3-8.2)
[2021-04-15] MEDS ORDERED: ROCEPHIN 1 Gm-D5w 50 ml Bag** 1 G/50 ML IVPB IV STA (15:02)
[2021-04-15] MEDS ORDERED: ROCEPHIN 1 Gm-D5w 50 ml Bag** 1 G/50 ML IVPB IV ONE (15:08)
[2021-04-15] MEDS ORDERED: Compazine 10 MG/2 ML IV ONE (15:08)
[2021-04-15] MEDS ORDERED: Compazine 10 MG/2 ML ONE (15:21)
[2021-04-15 16:48] VITALS: BP 132/88; PULSE 64; O2SAT 98
== END 2021-04-15 17:15 | disposition home or self-care (01) ==
LOC: ED 13:06
DX: N39.0 Urinary tract infection, site not specified (principal); R11.2 Nausea with vomiting, unspecified; Z86.16 Personal history of COVID-19; Z72.0 Tobacco use; Z79.899 Other long term (current) drug therapy
CPT/HCPCS: 36000; 36415; 80053; 81001; 81025; 82150; 83605; 83690; 85025; 93005; 96360; 96361; 96365; 96372; 96374; 96375; 96376; 99285; J0696; J1200; J1630

== ENCOUNTER 2021-11-12 11:28 | Emergency (ER) | payer OTHER ==
--- NOTE | 2021-11-12 11:30 | ERPHSYRPT ---
- History of Present Illness Time Seen by Provider: 11/12/21 11:30 Source: patient Exam Limitations: no limitations Physician History: This is a 21-year-old -[place] female who was seen in the outpatient clinic just prior to arrival to our emergency department and diagnosed with cellulitis and chronic recurring episodes of emesis. Patient states that her symptoms started yesterday. She did consume significant amount of alcohol over the weekend and she felt maybe it was related to that. However, the symptoms have persisted. Patient does have an area on her skin in the the upper, outer portion of her right breast that has cellulitis present with some tracking towards the axilla on the right side but not into the axilla. Patient states that she has no pain anywhere. The outpatient nurse practitioner sent a prescription for Keflex into her pharmacy. This was verified by us. Timing/Duration: yesterday Cough Quality/Degree: no cough Possible Cause: frequent episodes Modifying Factors: Improves With: activity Associated Symptoms: other (Hyperemesis) Allergies/Adverse Reactions: Corticosteroids (Glucocorticoids) Allergy (Severe, Verified 04/15/21 13:19) Swelling Hx Tetanus, Diphtheria Vaccination/Date Given: Yes Hx Influenza Vaccination/Date Given: No Hx Pneumococcal Vaccination/Date Given: No Travel Risk - International Travel Have you traveled outside of the country in past 3 weeks: No - Coronavirus Screening Are you exhibiting any of the following symptoms?: Yes Symptoms: Vomiting/Diarrhea Close contact with a COVID-19 positive Pt in past 14-21 Days: No - Vaccine Status Have you recieved a Covid-19 vaccination: No - Review of Systems Constitutional: No Symptoms Eyes: No Symptoms Ears, Nose, & Throat: No Symptoms Respiratory: No Symptoms Cardiac: No Symptoms Abdominal/Gastrointestinal: Nausea, Vomiting, Constipation, No Diarrhea Genitourinary Symptoms: No Symptoms Musculoskeletal: No Symptoms Skin: Cellulitis (Skin overlying the upper outer breast on the right side with proximal streaking towards the right axilla) Neurological: No Symptoms Psychological: No Symptoms Endocrine: No Symptoms Hematologic/Lymphatic: No Symptoms Immunological/Allergic: No Symptoms All Other Systems: Reviewed and Negative - Past Medical History Pertinent Past Medical History: Yes Neurological History: No Pertinent History ENT History: No Pertinent History Cardiac History: No Pertinent History Respiratory History: No Pertinent History Endocrine Medical History: No Pertinent History Musculoskeletal History: No Pertinent History GI Medical History: Other History: No Pertinent History Psycho-Social History: Anxiety, Depression Female Reproductive Disorders: No Pertinent History Other Medical History: viral infection of bowels - Past Surgical History Past Surgical History: No - Social History Smoking Status: Current every day smoker How long have you smoked: 1 yr Exposure to second hand smoke: Yes Drug Use: marijuana Patient Lives Alone: No - Nursing Vital Signs Nursing Vital Signs: Initial Vital Signs Temperature 98.9 F 11/12/21 11:31 Pulse Rate 58 L 11/12/21 11:31 Respiratory Rate 22 11/12/21 11:31 Blood Pressure 200/95 11/12/21 11:31 O2 Sat by Pulse Oximetry 100 11/12/21 11:31 Pain Scale Pain Intensity 0 - Physical Exam General Appearance: mild distress, alert, anxiety, thin Eye Exam: PERRL/EOMI, eyes nml inspection Ears, Nose, Throat Exam: normal ENT inspection, moist mucous membranes, tons illar exudate Neck Exam: normal inspection, non-tender, supple Respiratory Exam: normal breath sounds, lungs clear, airway intact, No chest tenderness, No respiratory distress Cardiovascular Exam: regular rate/rhythm, normal heart sounds, normal peripheral pulses Gastrointestinal/Abdomen Exam: soft, normal bowel sounds, No tenderness Pelvic Exam: not done Rectal Exam: not done Back Exam: normal inspection, normal range of motion, No CVA tenderness, No vertebral tenderness Extremity Exam: normal inspection, normal range of motion, pelvis stable Neurologic Exam: alert, oriented x 3, cilnical scientist II-XII nml as tested, normal mood/affect, nml cerebellar function, nml station & gait, sensation nml, agitation, other (Anxious) Skin Exam: other (Cellulitis skin upper outer quadrant of the right breast tracking towards the right axilla. There is a lesion present as well.) Lymphatic Exam: No adenopathy SpO2 Interpretation: normal O2 Delivery: Room Air - Course Nursing assessment & vital signs reviewed: Yes Ordered Tests: Active Orders 24 hr Category Date Time Status IV Insertion STAT Care 11/12/21 11:57 Active AMYLASE Stat Lab 11/12/21 12:23 Completed CBC W DIFF Stat Lab 11/12/21 12:23 Completed CMP Stat Lab 11/12/21 12:23 Completed HCG,QUALITATIVE URINE Stat Lab 11/12/21 11:57 Ordered LIPASE Stat Lab 11/12/21 12:23 Completed Lactic Acid Stat Lab 11/12/21 12:05 Completed UA W/RFX CULTURE Stat Lab 11/12/21 Ordered Urine Triage Profile Stat Lab 11/12/21 11:57 Ordered Medication Summary Generic Name Dose Route Start Last Admin Trade Name Jeff PRN Reason Stop Dose Admin Sodium Chloride 1,000 mls @ 999 mls/hr 11/12/21 11:57 11/12/21 12:12 Sodium Chloride 0.9% 1000 Ml IV 11/12/21 12:57 999 mls/hr .Q1H1M STA Administration Discontinued Medications Generic Name Dose Route Start Last Admin Trade Name Jeff PRN Reason Stop Dose Admin Famotidine 20 mg 11/12/21 11:57 11/12/21 12:12 Famotidine 20 Mg/1 Vial IV 11/12/21 11:58 20 mg STAT ONE Administration Famotidine Confirm 11/12/21 12:11 Famotidine 20 Mg/1 Vial Administered 11/12/21 12:12 Dose 20 mg IV .STK-MED ONE Sodium Chloride Confirm 11/12/21 12:11 Sodium Chloride 0.9% 1000 Ml Administered 11/12/21 12:12 Dose 1,000 mls @ ud .ROUTE .STK-MED ONE Ondansetron HCl 4 mg 11/12/21 11:57 11/12/21 12:12 Ondansetron Hcl 4 Mg/2 Ml Vial IV 11/12/21 11:58 4 mg STAT ONE Administration Ondansetron HCl Confirm 11/12/21 12:11 Ondansetron Hcl 4 Mg/2 Ml Vial Administered 11/12/21 12:12 Dose 4 mg .ROUTE .STK-MED ONE Lab/Rad Data: Laboratory Result Diagrams 11/12/21 12:23 11/12/21 12:23 Laboratory Results 11/12/21 11/12/21 11/12/21 Range/Units 12:23 12:23 12:05 WBC 9.8 (4.0-10.5) x10^3/uL RBC 5.58 H (4.1-5.4) x10^6/uL Hgb 14.2 (12.0-16.0) g/dL Hct 42.7 (35-47) % MCV 76.5 L (78-100) fL MCH 25.4 L (26-32) pg MCHC 33.3 (32-36) g/dL RDW 13.7 (11.5-14.0) % Plt Count 494 H (150-450) x10^3/uL MPV 10.4 (7.5-11.0) fL Gran % 71.9 H (36.0-66.0) % Immature Gran % (Auto) 0.5 H (0.00-0.4) % Nucleat RBC Rel Count 0.0 (0.00-0.1) % Eos # (Auto) 0.10 (0-0.5) x10^3/uL Immature Gran # (Auto) 0.05 H (0.00-0.03) x10^3u/L Absolute Lymphs (auto) 1.79 (1.0-4.6) x10^3/uL Absolute Monos (auto) 0.77 (0.0-1.3) x10^3/uL Absolute Nucleated RBC 0.00 (0.00-0.01) x10^3u/L Lymphocytes % 18.2 L (24.0-44.0) % Monocytes % 7.8 (0.0-12.0) % Eosinophils % 1.0 (0.00-5.0) % Basophils % 0.6 (0.0-0.4) % Absolute Granulocytes 7.04 H (1.4-6.9) x10^3/uL Basophils # 0.06 (0-0.4) x10^3/uL Sodium 141 (137-145) mmol/L Potassium 3.5 (3.5-5.1) mmol/L Chloride 107 (98-107) mmol/L Carbon Dioxide 18 L (22-30) mmol/L Anion Gap 19.2 H (5-15) MEQ/L BUN 17 (7-17) mg/dL Creatinine 0.61 (0.52-1.04) mg/dL Estimated GFR > 60.0 ML/MIN Glucose 106 (74-106) mg/dL Lactic Acid 2.4 H (0.4-2.0) Calcium 10.0 (8.4-10.2) mg/dL Total Bilirubin 1.00 (0.2-1.3) mg/dL AST 24 (14-36) U/L ALT 19 (0-35) U/L Alkaline Phosphatase 94 (38-126) U/L Serum Total Protein 8.8 H (6.3-8.2) g/dL Albumin 5.2 H (3.5-5.0) g/dL Amylase 82 (30-110) U/L Lipase 44 (23-300) U/L - Progress Progress: unchanged Air Movement: good Progress Note: 11/12/21 12:50 Medical decision making: This patient had a triage and a full history and physical exam by me and the nurses. The patient is anxious and agitated and is leaving AGAINST MEDICAL ADVICE. We verify that Keflex antibiotics was sent to her pharmacy by nurse practitioner that she saw prior to her evaluation in the emergency department. Patient does not want to wait. She realizes that she has a cellulitis present and that there is an abnormal skin lesion present within this region and this needed to be evaluated as an outpatient but treated now with antibiotics. I told her I would be putting an IV in and obtaining blood work as well as a urinalysis. I would also be giving her intravenous antibiotics here as well as intravenous fluids and performing work-up. However the patient did not want to wait. She signed AGAINST MEDICAL ADVICE form and realizes that her symptoms may worsen. I will send an antiemetic to her pharmacy. Blood Culture(s) Obtained: No Antibiotics given: No - Departure Departure Disposition: AMA Clinical Impression: Hyperemesis, Cellulitis Condition: Stable Critical Care Time: No Referrals: WAYNE YOUNG NP [Primary Care Provider] - Follow up/PCP as directed Additional Instructions: Drink plenty of fluids. Take your medication as prescribed. Follow-up with your primary care physician for further evaluation management. Return to the emergency department symptoms worsen. Prescriptions: Promethazine HCl 25 mg [Phenergan 25 mg] 25 mg PO Q8H PRN PRN #10 tablet MDD 3 PRN Reason: Vomiting
[2021-11-12 11:45] VITALS: BP 200/95; PULSE 58; O2SAT 100
[2021-11-12] MEDS ORDERED: Pepcid 20 MG VIAL IV ONE ×2 (11:57→12:11)
[2021-11-12] MEDS ORDERED: Sodium Chloride 0.9% 1000 ML 1,000 ML IV STA (11:57)
[2021-11-12] MEDS ORDERED: Zofran 4 MG/2 ML VIAL IV ONE (11:57)
[2021-11-12] MEDS ORDERED: Zofran 4 MG/2 ML VIAL ONE (12:11)
[2021-11-12] MEDS ORDERED: Sodium Chloride 0.9% 1000 ML 1,000 ML ONE (12:11)
[2021-11-12 12:24] LABS: Absolute Neutrophil Ct (ANC) 7.04 x10^3/uL (1.4-6.9); Basophil (Absolute #) 0.06 x10^3/uL (0-0.4); Hematocrit 42.7 % (35-47); Hemoglobin 14.2 g/dL (12.0-16.0); Lymphocyte (Absolute #) 1.79 x10^3/uL (1.0-4.6); Lymphocytes % 18.2 % (24.0-44.0); Mean Cell Volume 76.5 fL (78-100); Mean Corpuscular Hemoglobin 25.4 pg (26-32); Mean Corpuscular Hgb Concent. 33.3 g/dL (32-36); Mean Platelet Volume 10.4 fL (7.5-11.0); Monocyte (Absolute #) 0.77 x10^3/uL (0.0-1.3); Monocytes % 7.8 % (0.0-12.0); Neutrophil % 71.9 % (36.0-66.0); Platelet Count 494 x10^3/uL (150-450); Red Blood Count 5.58 x10^6/uL (4.1-5.4); Red Cell Distribution Width 13.7 % (11.5-14.0); White Blood Count 9.8 x10^3/uL (4.0-10.5)
[2021-11-12 12:37] LABS: ALBUMIN 5.2 g/dL (3.5-5.0); ALKALINE PHOSPHATASE 94 U/L (38-126); AMYLASE 82 U/L (30-110); ANION GAP 19.2 MEQ/L (5-15); BLOOD UREA NITROGEN 17 mg/dL (7-17); CHLORIDE 107 mmol/L (98-107); Carbon Dioxide 18 mmol/L (22-30); Creatinine 1 0.61 mg/dL (0.52-1.04); EST GLOMERULAR FILTRATION RATE > 60.0 ML/MIN; Glucose 106 mg/dL (74-106); LIPASE 44 U/L (23-300); Potassium 3.5 mmol/L (3.5-5.1); SGOT/AST 24 U/L (14-36); SGPT/ALT 19 U/L (0-35); SODIUM 141 mmol/L (137-145); Total Protein 8.8 g/dL (6.3-8.2)
[2021-11-12 13:00] LABS: INFLUENZA A NEGATIVE (NEGATIVE); INFLUENZA B NEGATIVE (NEGATIVE); RESPIRATORY SYNCTIAL VIRUS NEGATIVE (Negative); SARS-CoV-2 Xpert Express NEGATIVE (NEGATIVE)
== END 2021-11-12 12:50 | disposition left against medical advice (07) ==
LOC: ED 11:28
DX: R11.10 Vomiting, unspecified (principal); N61.0 Mastitis without abscess; Z72.0 Tobacco use; Z28.310 Unvaccinated for COVID-19
CPT/HCPCS: 0241U; 36000; 36415; 80053; 82150; 83605; 83690; 85025; 96374; 96375; 99284; J2405

== ENCOUNTER 2021-11-12 14:29 | Emergency (ER) | payer OTHER ==
[2021-11-12] MEDS ORDERED: Zofran 4 MG/2 ML VIAL IV ONE (15:06)
[2021-11-12] MEDS ORDERED: Sodium Chloride 0.9% 1000 ML 1,000 ML IV STA (15:06)
[2021-11-12] MEDS ORDERED: ROCEPHIN 1 Gm-D5w 50 ml Bag** 1 G/50 ML IVPB IV STA (15:08)
[2021-11-12] MEDS ORDERED: Sodium Chloride 0.9% 1000 ML 1,000 ML ONE (15:18)
[2021-11-12] MEDS ORDERED: Zofran 4 MG/2 ML VIAL ONE (15:18)
[2021-11-12] MEDS ORDERED: ROCEPHIN 1 Gm-D5w 50 ml Bag** 1 G/50 ML IVPB IV ONE (15:18)
--- NOTE | 2021-11-12 15:29 | ERPHSYRPT ---
- History of Present Illness Time Seen by Provider: 11/12/21 15:24 Historian: patient Exam Limitations: no limitations Physician History: This is a 21-year-old -[place] female who left here AGAINST MEDICAL ADVICE a few hours ago. Her significant other had contacted the hospital and administration as well as having a discussion with the nursing job training supervisor about the patient leaving. I had ordered a complete, full work-up for her when the patient suddenly decided to leave AGAINST MEDICAL ADVICE. She is back again at this time and nothing significant has changed. Her diagnosis is recurring emesis and cellulitis. We will now complete the work-up and treatment plan that we had already scheduled for her earlier before she left AGAINST MEDICAL ADVICE. Timing/Duration: yesterday Activities at Onset: none Quality: other (No complaints of any pain) Pain Radiation: no radiation Severity of Pain-Max: none Severity of Pain-Current: none Modifying Factors: Improves With: nothing Associated Symptoms: nausea, vomiting, other (Cellulitis skin right upper outer quadrant of breast) Previous symptoms: same symptoms as today, recently seen, recently treated Allergies/Adverse Reactions: Corticosteroids (Glucocorticoids) Allergy (Severe, Verified 11/12/21 15:35) Swelling Hx Tetanus, Diphtheria Vaccination/Date Given: Yes Hx Influenza Vaccination/Date Given: No Hx Pneumococcal Vaccination/Date Given: No Travel Risk - International Travel Have you traveled outside of the country in past 3 weeks: No - Coronavirus Screening Are you exhibiting any of the following symptoms?: Yes Symptoms: Vomiting/Diarrhea - Vaccine Status Have you recieved a Covid-19 vaccination: No - Review of Systems Constitutional: No Symptoms Eyes: No Symptoms Ears, Nose, & Throat: No Symptoms Respiratory: No Symptoms Cardiac: No Symptoms Abdominal/Gastrointestinal: Nausea, Vomiting Genitourinary Symptoms: No Symptoms Musculoskeletal: No Symptoms Skin: Cellulitis (Skin right upper outer quadrant breast) Neurological: No Symptoms Psychological: Anxiety, Emotional Lability Endocrine: No Symptoms Hematologic/Lymphatic: No Symptoms Immunological/Allergic: No Symptoms All Other Systems: Reviewed and Negative - Past Medical History Pertinent Past Medical History: Yes Neurological History: No Pertinent History ENT History: No Pertinent History Cardiac History: No Pertinent History Respiratory History: No Pertinent History Endocrine Medical History: No Pertinent History Musculoskeletal History: No Pertinent History GI Medical History: Other History: No Pertinent History Psycho-Social History: Anxiety, Depression Female Reproductive Disorders: No Pertinent History Other Medical History: viral infection of bowels - Past Surgical History Past Surgical History: No - Social History Smoking Status: Current every day smoker How long have you smoked: 1 yr Exposure to second hand smoke: Yes Drug Use: marijuana Patient Lives Alone: No - Nursing Vital Signs Nursing Vital Signs: Initial Vital Signs Temperature 97.5 F 11/12/21 15:10 Pulse Rate 58 L 11/12/21 15:10 Respiratory Rate 20 11/12/21 15:10 Blood Pressure 163/112 11/12/21 15:10 O2 Sat by Pulse Oximetry 100 11/12/21 15:10 Pain Scale Pain Intensity 4 - Physical Exam General Appearance: no apparent distress, alert, anxiety, thin Eye Exam: PERRL/EOMI, eyes nml inspection Ears, Nose, Throat Exam: normal ENT inspection, moist mucous membranes Neck Exam: normal inspection, non-tender, supple, full range of motion Respiratory Exam: normal breath sounds, lungs clear, airway intact, No chest tenderness, No respiratory distress Cardiovascular Exam: regular rate/rhythm, normal heart sounds, normal peripheral pulses Gastrointestinal/Abdomen Exam: soft, normal bowel sounds, No tenderness Pelvic Exam: not done Rectal Exam: not done Back Exam: normal inspection, normal range of motion, No CVA tenderness, No vertebral tenderness Extremity Exam: normal inspection, normal range of motion, pelvis stable Neurologic Exam: alert, oriented x 3, cooperative, weaver 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-XII nml as tested, normal mood/affect, nml cerebellar function, nml station & gait, sensation nml Skin Exam: other (Cellulitis skin overlying the right breast in the upper outer quadrant tracking towards the right axilla but not into the axilla) Lymphatic Exam: No adenopathy SpO2 Interpretation: normal O2 Delivery: Room Air - Course Nursing assessment & vital signs reviewed: Yes Ordered Tests: Active Orders 24 hr Category Date Time Status Clean Catch Urine Specimen STAT Care 11/12/21 15:06 Active Clean Catch Urine Specimen STAT Care 11/12/21 18:37 Active IV Insertion STAT Care 11/12/21 15:06 Active ABDOMEN AND PELVIS W/0 CONTRAS [CT] Stat Exams 11/12/21 17:35 Taken BLOOD CULTURE Stat Lab 11/12/21 11:40 Received HCG QUALITATIVE,SERUM Stat Lab 11/12/21 Completed Lactic Acid Stat Lab 11/12/21 15:06 Ordered Urine Triage Profile Stat Lab 11/12/21 18:39 Ordered Medication Summary Discontinued Medications Generic Name Dose Route Start Last Admin Trade Name Jeff PRN Reason Stop Dose Admin Hydromorphone HCl Confirm 11/12/21 17:34 Hydromorphone 1 Mg/1ml Inj 1 Mg/Ml Syringe Administered 11/12/21 17:35 Dose 1 mg .ROUTE .STK-MED ONE Hydromorphone HCl 0.5 mg 11/12/21 17:34 11/12/21 17:37 Hydromorphone 1 Mg/1ml Inj 1 Mg/Ml Syringe IV 11/12/21 17:35 0.5 mg STAT ONE Administration Ceftriaxone Sodium/Dextrose 1 g in 50 mls @ 100 mls/hr 11/12/21 15:08 11/12/21 17:00 Rocephin 1 Gm-D5w 50 Ml Bag IV 11/12/21 15:37 Infused STAT STA Infusion Sodium Chloride 1,000 mls @ 999 mls/hr 11/12/21 15:06 11/12/21 17:21 Sodium Chloride 0.9% 1000 Ml IV 11/12/21 16:06 Infused .Q1H1M STA Infusion Sodium Chloride Confirm 11/12/21 15:18 Sodium Chloride 0.9% 1000 Ml Administered 11/12/21 15:19 Dose 1,000 mls @ ud .ROUTE .STK-MED ONE Ceftriaxone Sodium/Dextrose Confirm 11/12/21 15:18 Rocephin 1 Gm-D5w 50 Ml Bag Administered 11/12/21 15:19 Dose 1 g in 50 mls @ ud IV .STK-MED ONE Promethazine HCl 25 mg/ Sodium 101 mls @ 200 mls/hr 11/12/21 16:16 11/12/21 16:43 Chloride IV 11/12/21 16:46 200 mls/hr STAT ONE Administration Ondansetron HCl 4 mg 11/12/21 15:06 11/12/21 16:10 Ondansetron Hcl 4 Mg/2 Ml Vial IV 11/12/21 15:07 4 mg STAT ONE Administration Ondansetron HCl Confirm 11/12/21 15:18 Ondansetron Hcl 4 Mg/2 Ml Vial Administered 11/12/21 15:19 Dose 4 mg .ROUTE .STK-MED ONE Lab/Rad Data: Laboratory Results 11/12/21 Range/Units Unknown Serum , Qual NEGATIVE (Negative) - Progress Progress: improved Progress Note: 11/12/21 18:49 After the Dilaudid medication, patient states that she is feeling 100% better. Counseled pt/family regarding: lab results, diagnosis, need for follow-up, rad results - Departure Departure Disposition: Home Clinical Impression: Cellulitis, Recurrent vomiting Condition: Stable Critical Care Time: No Referrals: WAYNE YOUNG NP [Primary Care Provider] - Follow up/PCP as directed Additional Instructions: Drink plenty of clear liquids before advancing your diet. Follow-up with your primary care doctor for further evaluation management including referral to a telephone assembler. Take your medications as prescribed. Avoid fatty greasy spicy foods. Avoid alcohol ingestion. Avoid tobacco use. Avoid marijuana use. Prescriptions: Famotidine 20 mg [Pepcid 20 MG] 20 mg PO DAILY #10 tablet
[2021-11-12] MEDS ORDERED: Phenergan 25 MG INJ*** 25 MG in Sodium Chloride 0.9% 100 ML IV ONE (16:16)
[2021-11-12] MEDS ORDERED: Hydromorphone 1 mg/ml Injection ONE (17:34)
[2021-11-12] MEDS ORDERED: Hydromorphone 1 mg/ml Injection IV ONE (17:34)
[2021-11-12 18:35] VITALS: BP 142/72; PULSE 82; O2SAT 98
[2021-11-12 19:13] LABS: Amphetamine,Urine NEGATIVE (NEGATIVE); Barbiturate,Urine NEGATIVE (NEGATIVE); Benzodiazepine,Urine NEGATIVE (NEGATIVE); Cocaine,Urine NEGATIVE (NEGATIVE); Methadone,Urine NEGATIVE (NEGATIVE); Opiate,Urine NEGATIVE (NEGATIVE); PCP,Urine NEGATIVE (NEGATIVE); THC,Urine POSITIVE (NEGATIVE)
--- NOTE | 2021-11-13 08:36 | XRAY ---
Indication: Abdomen pain, nausea, and vomiting 2 days. Multiple contiguous axial images obtained through the abdomen and pelvis without contrast. Comparison: April 07, 2020 Lung bases remain clear. Heart not enlarged. Noncontrasted stomach and bowel loops nonobstructed. Interval appendectomy. No free fluid/air. Remaining liver, gallbladder, pancreas, spleen, adrenal glands, kidneys, ureters, bladder, and aorta are unremarkable for noncontrast exam. Osseous structures intact. No ventral or inguinal hernias. Impression: Negative CT abdomen/pelvis without contrast exam.
== END 2021-11-12 19:00 | disposition home or self-care (01) ==
LOC: ED 14:29
DX: N61.0 Mastitis without abscess (principal); R11.10 Vomiting, unspecified; Z72.0 Tobacco use; Z28.310 Unvaccinated for COVID-19
CPT/HCPCS: 36000; 36415; 74176; 80307; 84703; 87040; 96360; 96365; 96374; 96375; 99284; J0696; J1170; J2405; J2550